=== PATIENT | male | born 2000 ===

== ENCOUNTER 2021-12-31 06:14 | Outpatient (CLI) | payer OTHER ==
[~2021-12-31] VITALS: Ht 122.5 cm; Wt 62.7 kg
== END 2021-12-31 10:32 | disposition home or self-care (01) ==
LOC: PREOP 06:14
PROVIDERS: ATTEND Specialist
DX: Z01.818 Encounter for other preprocedural examination (principal)

== ENCOUNTER 2022-01-04 09:40 | Day surgery (SDC) | payer OTHER ==
[~2022-01-04] VITALS: Ht 122.5 cm; Wt 62.7 kg
[2022-01-04] VITALS (11 sets, daily range): BP systolic 98–140; BP diastolic 51–89
[2022-01-04] MEDS ORDERED: ceFAZolin 2 GM IV Premixed 50 ML IV ONE (10:00)
[2022-01-04] MEDS ORDERED: LACTATED RINGERS 1,000 ML IV PRN (10:00)
[2022-01-04] MEDS ORDERED: NEO/POLY/BAC (NEOSPORIN) OINT 15 GM TUBE ONE (10:16)
[2022-01-04] MEDS ORDERED: LIDOCAINE/EPI 2% 1:100,00 (XYLOCAINE) 20 ML VIAL ONE (10:17)
[2022-01-04] MEDS ORDERED: ROPIVACAINE 5MG/ML 30ML VIAL ONE (10:17)
[2022-01-04] MEDS ORDERED: PHENYLEPHRINE 0.5% NASAL SPR (NEO-SYNEPHRINE) REG ONE (10:17)
[2022-01-04] MEDS ORDERED: proPOfol 200 MG/20 ML (DIPRIVAN) VIAL IV ONE (10:38)
[2022-01-04] MEDS ORDERED: MIDAZOLAM 2 MG/2 ML (VERSED) VIAL ONE (10:38)
[2022-01-04] MEDS ORDERED: ONDANSETRON 4 MG/2 ML (SDV) Z0FRAN ONE (10:38)
[2022-01-04] MEDS ORDERED: LIDOCAINE PF 2% 5 ML (XYLOCAINE) VIAL ONE (10:38)
[2022-01-04] MEDS ORDERED: fentaNYL INJ 100 MCG/2 ML AMP ONE (10:38)
[2022-01-04] MEDS ORDERED: SEVOFLURANE (ULTANE) 15 ML INHAL SOLN ONE (12:14)
[2022-01-04] MEDS ORDERED: morphine INJ 10 MG/ML 1ML (SYR OR VIAL) IVP ONE (12:30)
[2022-01-04] MEDS ORDERED: HYDROmorphone 2 MG/ML VIAL (DILAUDID) IV ONE (12:30)
--- NOTE | 2022-01-04 13:09 | Anesthesia-General Post-Op ---
General Patient Condition Mental Status/LOC: Same as Preop Cardiovascular: Satisfactory Nausea/Vomiting: Absent Respiratory: Satisfactory Pain: Controlled Complications: Absent Post Op Complications Complications None Follow Up Care/Instructions Patient Instructions None needed. Anesthesia/Patient Condition Patient Condition Patient is doing well, no complaints, stable vital signs, no apparent adverse anesthesia problems. No complications reported per nursing. LITA BREWER CRNA Jan 04, 2022 13:09
[2022-01-04] MEDS ORDERED: HYDROcodone/APAP 5 MG/325 MG (LORTAB) TAB PO ONE (13:45)
--- NOTE | 2022-01-21 04:27 | OPERATIVE REPORT ---
DATE OF SERVICE: 01/04/2022 SERVICE: Oral maxillofacial surgery. SURGEON: Thomas Zhang DDS PUBLIC RELATIONS MANAGER: Kasey ____ ANESTHESIA: General endotracheal. COMPLICATIONS: There were no complications. BLOOD LOSS: 100 mL. FLUIDS: 800 mL of crystalloid. COUNTS: Instrument, needle and sponge count were correct x2. PROCEDURE: Open reduction of nasal fracture bilaterally as well as open reduction of septal deviation. PREOPERATIVE DIAGNOSIS: Displaced maxillary nasal bones fracture bilaterally as well as deviated nasal septum, status post trauma. POSTOPERATIVE DIAGNOSIS: Displaced maxillary nasal bones fracture bilaterally as well as deviated nasal septum, status post trauma. 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 Upon evaluation, he had a fracture of his nasal bones and they were displaced to the right causing decreased internal nasal valve angle on his left side as well as cleaning his right naris, right side of his nasal valve angle and also displaced nasal septum to the right also. After reviewing the CT scan with the patient and explained his injury and the way in which this will be corrected. He was allowed to ask questions, these were answered and then he accepted the treatment plan, which has been proposed and he was scheduled for surgery at the earliest opportune time at [facility] in [place]. DESCRIPTION OF PROCEDURE: The patient was taken to the operating room and placed on laboratory table. Appropriate monitors were placed and anesthesia was induced via orotracheal intubation without difficulty. Once this was secured, the surgeon left the room, scrubbed, returned, donned sterile gowns and gloves and prepped and draped the patient in the usual and standard sterile fashion. After this, we deposited local anesthesia in and around the nasal bones and the floor of the nose of the nasal septum. We placed a Devan-Synephrine soaked gauze intranasally to aid in vasoconstriction of this region. Once this allowed to take effect, I used a #15 blade and made an incision intranasally between the lower lateral and upper lateral cartilages right at the anterior border of the piriform rim bilaterally and then also a septal excise through the nasal septum starting at the over the nose and extending to the mucosa up on the lateral aspect of the right naris or internally on the right side of his septum. After this, I was able to elevate a full-thickness mucoperiosteal flap on the medial aspect of the nose. This was completed bilaterally and then I was able to use a Boies elevator to reconstruct the appropriate anatomy of his nasal bones. I then reestablishing an approximately 15-degree angle of his internal nasal valve. His nasal septum was also deviated and subsequently to our septal mucosal incision, I was able to mobilize and reposition his dorsum and the inferior aspect of his nasal septum. Once these were indeed place to correct in the anatomical position, I was then placed Sandoval splints bilaterally and they were secured with a 2-0 Prolene through the columella region and then I was able to place an Aquaplast splint. Then, we closed our incisions with 4-0 chromic. This completed our procedure. He was allowed to emerge from his general anesthetic and then he was extubated in the operating room and then transported to the recovery room where he was assessed to have stable vital signs, breathing spontaneously with pulse ox of 99%. Job ID: [id number] DocumentID: [id number] Dictated Date: 01/20/2022 17:15:00 Open Claims Representative Date: 01/21/2022 04:26:14 Dictated By: THOMAS ZHANG DDS
== END 2022-01-04 16:15 | disposition home or self-care (01) ==
LOC: SDC 09:40
PROVIDERS: ATTEND Specialist
DX: S02.2XXA Fracture of nasal bones, initial encounter for closed fracture (principal); J34.2 Deviated nasal septum
CPT/HCPCS: 87081